=== PATIENT | female | born 1995 ===

== ENCOUNTER 2017-04-14 17:56 | Observation (INO) | payer OTHER ==
[2017-04-14 21:09] LABS: Glucose,Whole Blood 148 mg/dL (75-99)
[2017-04-14] MEDS ORDERED: traMADol 50 MG TAB PO PRN (21:33)
[2017-04-14] MEDS ORDERED: HYDROmorphone 1 MG/ML 1 ML SYRINGE IVP PRN (21:35)
[2017-04-14] MEDS: SODIUM CHLORIDE 0.9% 1,000 ML IV SCH (22:01)
[2017-04-15] MEDS ORDERED: PANTOPRAZOLE 40 MG/10 ML VIAL IVP ONE (00:08)
[2017-04-15] MEDS ORDERED: ONDANSETRON 4 MG/2 ML VIAL IVP PRN (00:09)
[2017-04-15] MEDS: HYDROcodone/APAP 5-325MG 1 EACH TAB PO PRN ×2 (00:46→08:05)
[2017-04-15 00:48] LABS: ALT 39 U/L (9-52); AST 20 U/L (14-36); Alkaline Phosphatase 54 U/L (38-126); Anion Gap 11 mmol/L; Blood Urea Nitrogen 10 mg/dL (7-17); Calcium 9.1 mg/dL (8.4-10.2); Carbon Dioxide 21 mmol/L (22-30); Chloride 105 mmol/L (98-107); Glucose 63 mg/dL (74-99); Non-African American GFR(MDRD) >60 (>60 ml/min/1.73 sqM); Potassium 4.2 mmol/L (3.5-5.1); Sodium 137 mmol/L (137-145); Total Bilirubin 0.4 mg/dL (0.2-1.3); Total Protein 6.6 g/dL (6.3-8.2)
[2017-04-15] MEDS: metroNIDAZOLE 250 MG TABLET PO SCH ×3 (01:56→17:27)
[2017-04-15 01:58] LABS: Glucose,Whole Blood 81 mg/dL (75-99)
[2017-04-15 02:02] LABS: Appearance,Urine Clear (Clear); Bilirubin,Urine Negative (Negative); Glucose,Urine (UA) Negative (Negative); Ketones,Urine Negative (Negative); Leukocyte Esterase,Urine Negative (Negative); Mucus,Urine Rare /hpf; Nitrite,Urine Negative (Negative); PH, Urine 5.5 (5.0-8.0); Particle Count 3015; Protein,Urine Trace (Negative); RBC,Urine 2 /hpf (0-5); Squamous Epithelial Cell,Urine 1 /hpf (0-4); UA Billing (MACRO vs. MICRO) MICRO; Urobilinogen,Urine <2.0 mg/dL (<2.0); WBC,Urine 2 /hpf (0-5)
--- NOTE | 2017-04-15 05:31 | HP ---
HISTORY AND PHYSICAL CHIEF COMPLAINT: Abdominal pain, diarrhea and bleeding per rectum. HISTORY OF PRESENT ILLNESS: This 21-year-old woman with a past medical history of chest pain, GERD, history of anxiety being followed by Dr. Jose F Alvarez in the outpatient setting apparently went to [facility] about a week ago to visit the patient's family who was admitted to the hospital. The patient apparently ate from the [employer] from the hospital. About 2 days ago the patient had fever on and off and as well as abdominal pain followed by multiple bouts of diarrhea, watery diarrhea, and also bleeding per rectum and the patient went to [facility]. The CT scan showed diffuse colitis involving the ascending, transverse, descending colon as well as some involvement of the small intestine also. The patient was transferred directly and admitted for further evaluation and treatment. There is no history of any hematochezia or melena. No history of arthritis. A vague rash was noted in the stomach. PAST MEDICAL HISTORY: History of chest pain, GERD, history of anxiety. MEDICATIONS: Medications are: 1. Tylenol p.r.n. 2. Metformin 500 mg t.i.d. 3. Prilosec 20 mg daily. ALLERGIES: Allergies are none. FAMILY HISTORY: History of cancer and hypertension in the family. SOCIAL HISTORY: No history of smoking. No history of alcohol intake. REVIEW OF SYSTEMS: ENT: No diminished hearing or diminished vision. CARDIOVASCULAR SYSTEM: No angina. RESPIRATORY: As mentioned earlier. GI: As mentioned earlier. : No dysuria. NERVOUS SYSTEM: No numbness or weakness. ALLERGY/IMMUNOLOGY: No asthma or hayfever. MUSCULOSKELETAL: As mentioned earlier. HEMATOLOGY/ONCOLOGY: No history of anemia. ENDOCRINE: No history of diabetes or hypothyroidism. CONSTITUTIONAL: As mentioned earlier. DERMATOLOGY: Negative. RHEUMATOLOGY: Negative. PSYCHIATRY: As mentioned earlier. PHYSICAL EXAMINATION: The patient is alert and oriented x3. Pulse is 110, blood pressure is 119/75, respiration 20, temperature 98.6, pulse ox 96% on room air. EYES: Conjunctivae normal. Oral mucosa moist. Neck is no jugular venous distention. No carotid bruit. No lymph node enlargement. CARDIOVASCULAR SYSTEM: S1 and S2, muffled. No S3, no S4. RESPIRATORY SYSTEM: Breath sounds diminished at the bases. No rhonchi. No crackles. ABDOMEN: Soft. Mild diffuse tenderness present. Otherwise no guarding, no rigidity. No mass palpable. No ascites. Bowel sounds present. LEGS: No edema, no swelling. NERVOUS SYSTEM: Higher functions as mentioned earlier. Moves all 4 limbs. No focal motor or sensory deficit. LYMPHATICS: No lymphadenopathy of the neck, axillae or groin. SKIN: No ulcers, rash or bleeding. LABS: Glucose 148. ASSESSMENT: 1. Abdominal pain, diarrhea and lower gastrointestinal bleeding possibly acute colitis. 2. Rule out hepatitis. 3. Gastroesophageal reflux disease. 4. Chest pain. 5. Anxiety. 6. Increased random blood sugar. 7. Obesity with body mass index of 40.3. RECOMMENDATION AND DISCUSSION: This 21-year-old woman who presented with multiple complex medical issues, will monitor the patient closely. Empiric antibiotics initiated. Obtain cultures. Stool testing. C. difficile has been requested. Otherwise, gastroenterology consultation possible endoscopies. Guarded prognosis because of multiple complex medical issues. Further recommendations to follow. Discussed with the patient understands and agrees. MMODL / IJN: [id number] /
[2017-04-15 06:36] LABS: Basophils # (A) 0.1 k/uL (0-0.2); Basophils % (A) 1 %; CH 28.4; Eosinophils # (A) 0.2 k/uL (0-0.7); Eosinophils % (A) 2 %; HCT 39.8 % (34.0-46.0); HDW 2.68; HGB 12.4 gm/dL (11.4-16.0); Luc # (Auto) 0.23; Luc % (Auto) 3; Lymphocytes # (A) 1.5 k/uL (1.0-4.8); Lymphocytes % (A) 16 %; MCH 27.7 pg (25.0-35.0); MCV 89.1 fL (80.0-100.0); Mean Platelet Volume 7.1; Monocytes # (A) 1.2 k/uL (0-1.0); Monocytes % (A) 13 %; Neutrophils # (A) 6.1 k/uL (1.3-7.7); Neutrophils % (A) 66 %; RBC 4.46 m/uL (3.80-5.40); RDW 14.2 % (11.5-15.5); WBC 9.2 k/uL (3.8-10.6); WBC (Perox) 9.96
[2017-04-15 06:47] LABS: Anion Gap 9 mmol/L; Blood Urea Nitrogen 9 mg/dL (7-17); Calcium 8.8 mg/dL (8.4-10.2); Carbon Dioxide 22 mmol/L (22-30); Chloride 107 mmol/L (98-107); Glucose 75 mg/dL (74-99); Magnesium 1.8 mg/dL (1.6-2.3); Non-African American GFR(MDRD) >60 (>60 ml/min/1.73 sqM); Potassium 3.7 mmol/L (3.5-5.1); Sodium 138 mmol/L (137-145)
[2017-04-15] MEDS: INSULIN ASPART 100 UNIT/ML 1 ML 10 ML VIAL SQ SCH ×4 (07:27→21:09)
[2017-04-15] MEDS ORDERED: metFORMIN 500 MG TAB PO SCH (07:30)
[2017-04-15] MEDS: PANTOPRAZOLE 40 MG/10 ML VIAL IVP SCH (07:40)
[2017-04-15 09:04] VITALS: BMI 40.3
[2017-04-15] MEDS: HEPARIN SODIUM,PORCINE 5,000 UNIT/ML 1 ML VIAL SQ SCH ×2 (09:39→21:09)
[2017-04-15 12:00] LABS: Glucose,Whole Blood 80 mg/dL (75-99)
--- NOTE | 2017-04-15 12:16 | P.CONS ---
History of Present Illness - Reason for Consult Consult date: 04/15/17 colitis Requesting physician: Alfredito Holbrook - History of Present Illness 21-year-old female admitted with reports of intermittent fever watery diarrhea rectal bleeding mid to lower abdominal pain that started Friday. Patient was evaluated [facility] and sent here. CT and [place] reported diffuse colitis involving the ascending transverse descending colon is some involvement of the small intestine. No changes in medications sick contacts recent antibiotics or travels. White count 9.2. Hemoglobin 12.4. LFTs within normal limits. C. diff negative. Afebrile. Bowel movements are improving less frequent and less bloody. Abdominal pain improving. No history of personal or familial inflammatory bowel disease. No history of colitis. Review of Systems Constitutional: Denies fever, chills, sweats, weight gain, or loss. HEENT: Negative for migraines, blurred vision or loss, earaches, drainage, tinnitus, oral mucosal lesions, dysphagia, or odynophagia. CARDIAC: History of chest pain denies, arrhythmias, or palpitation. RESPIRATORY: Asthma. Negative for shortness of breath, hemoptysis, cough, or sputum production. GI: See HPI for pertinent findings. : Negative for hematuria, urgency, frequency, polyuria, or dysuria. GYNc: Denies possibility of . Negative vaginal discharge. MUSCULOSKELETAL: Negative for muscle aches, swelling, arthritis, and arthralgias. NEUROLOGIC: Negative for stroke or TIA. ENDOCRINE: Negative for thyroid problems. SKIN: Negative for rash or itching. PSYCHIATRIC: Anxiety. All systems: negative (See HPI) Past Medical History Past Medical History: Chest Pain / Angina, GERD/Reflux History of Any Multi-Drug Resistant Organisms: None Reported Past Surgical History: No Surgical Hx Reported Past Anesthesia/Blood Transfusion Reactions: No Reported Reaction Past Psychological History: Anxiety Smoking Status: Never smoker - Past Family History Father Family Medical History: Cancer, Hypertension Medications and Allergies Home Medications Medication Instructions Recorded Confirmed Type Ibuprofen [Motrin] 200 mg PO DAILY 04/14/17 04/14/17 History Omeprazole [PriLOSEC] 20 mg PO AC-BRKFST 04/14/17 04/14/17 History metFORMIN HCL [Glucophage] 500 mg PO TID 04/14/17 04/14/17 History Allergies Allergy/AdvReac Type Severity Reaction Status Date / Time No Known Allergies Allergy Verified 04/14/17 20:42 Physical Exam Vitals: Vital Signs Temp Pulse Resp BP Pulse Ox 04/15/17 08:25 97.5 F L 69 20 103/61 98 04/14/17 20:18 98.6 F 110 H 20 119/75 96 Intake and Output 04/14/17 04/15/17 04/15/17 22:59 06:59 14:59 Intake Total 1400 1160 Output Total 150 100 Balance 1250 1060 Intake: Oral 1400 1160 Output: Urine 150 100 Other: Voiding Method Toilet Weight 103.2 kg 103.2 kg Patient Weight 04/16/17 06:59 Weight 103.2 kg General appearance: The patient is alert, oriented, in no acute distress. HET: Head is normocephalic and atraumatic. Pupils are equal and reactive. Oropharynx is clear without lesions. Neck: Supple without lymphadenopathy. Trachea midline. Heart: S1 S2. Regular rate and rhythm. Lungs: No crackles or wheezes are heard. Abdomen: Soft, nontender, nondistended with bowel sounds. No peritoneal signs. No palpable organomegaly or masses. Extremities: Normal skin color and turgor. No cyanosis, rash, ulceration, clubbing, or edema. Radial and pedal pulses are 2/4 bilaterally. Neurological: No focal deficits. Strength and sensation are grossly intact. Results CBC & Chem 7: 04/15/17 06:19 04/15/17 06:19 Labs: Abnormal Lab Results - Last 24 Hours (Table) 04/14/17 04/14/17 04/15/17 Range/Units 01:45 21:08 00:00 Monocytes # (0-1.0) k/uL Carbon Dioxide 21 L (22-30) mmol/L Glucose 63 L (74-99) mg/dL POC Glucose (mg/dL) 148 H (75-99) mg/dL Urine Protein Trace H (Negative) Urine Blood Moderate H (Negative) Urine Mucus Rare H (None) /hpf 04/15/17 Range/Units 06:19 Monocytes # 1.2 H (0-1.0) k/uL Carbon Dioxide (22-30) mmol/L Glucose (74-99) mg/dL POC Glucose (mg/dL) (75-99) mg/dL Urine Protein (Negative) Urine Blood (Negative) Urine Mucus (None) /hpf CT scan - abdomen: report reviewed (Dr. Gould) Assessment and Plan (1) Colitis Narrative/Plan: Suspect self-limiting infectious colitis possible inflammatory possible ischemic Current Visit: Yes Status: Acute Code(s): K52.9 - NONINFECTIVE GASTROENTERITIS AND COLITIS, UNSPECIFIED SNOMED Code(s): 62737634 Plan: 1. Light diet. Patient requesting advancement. 2. Empiric antibiotics Levaquin and Flagyl. Inpatient endoscopy not planned at this time. 3. Additional stool studies pending. Thank you for this kind referral and the opportunity to participate in the care of your patient. This consultation was discussed with Dr. Gould. The impression and plan of care have been directed as dictated.
[2017-04-15] MEDS: SODIUM CHLORIDE 0.9% 1,000 ML IV SCH (12:47)
[2017-04-15] MEDS: KETOROLAC 30 MG/ML 1 ML VIAL IVP PRN ×2 (15:02→21:08)
--- NOTE | 2017-04-15 16:56 | P.PN ---
Subjective Patient was admitted for pancolitis, there was concern about ulcerative colitis although patient is evaluating gastroenterology and is being treated for infectious colitis patient can use to have diarrhea because of which I'm unable to discharge her today. Pain medications will be switched to nonsteroidal anti- inflammatory is from opiates. If her diarrhea improves patient will be discharged tomorrow on oral antibiotics. Constitutional: Denied any fatigue denied any fever. Cardio vascular: denied any chest pain, palpitations Gastrointestinal continued abdominal pain and diarrhea Pulmonary: Denied any shortness of breath cough Neurologic denied any new focal deficits Objective - Vital Signs Vital signs: Vital Signs Temp 97.5 F L 04/15/17 12:00 Pulse 73 04/15/17 12:00 Resp 12 04/15/17 12:00 BP 115/69 04/15/17 12:00 Pulse Ox 96 04/15/17 12:00 Intake & Output 04/14/17 04/15/17 04/15/17 18:59 06:59 18:59 Intake Total 2560 Output Total 250 Balance 2310 Weight 103.2 kg 103.2 kg Intake: Oral 2560 Output: Urine 250 Other: Voiding Method Toilet # Voids 1 # Bowel Movements 3 - Exam PHYSICAL EXAMINATION: GENERAL: The patient is alert and oriented x3, not in any acute distress. Well developed, well nourished. HEENT: Pupils are round and equally reacting to light. EOMI. No scleral icterus. No conjunctival pallor. Normocephalic, atraumatic. No pharyngeal erythema. No thyromegaly. CARDIOVASCULAR: S1 and S2 present. No murmurs, rubs, or gallops. PULMONARY: Chest is clear to auscultation, no wheezing or crackles. ABDOMEN: Soft, minimal diffuse abdominal tenderness, nondistended, normoactive bowel sounds. No palpable organomegaly. MUSCULOSKELETAL: No joint swelling or deformity. EXTREMITIES: No cyanosis, clubbing, or pedal edema. NEUROLOGICAL: Gross neurological examination did not reveal any focal deficits. SKIN: No rashes. - Labs CBC & Chem 7: 04/15/17 06:19 04/15/17 06:19 Labs: Abnormal Lab Results - Last 24 Hours (Table) 04/14/17 04/14/17 04/15/17 Range/Units 01:45 21:08 00:00 Monocytes # (0-1.0) k/uL Carbon Dioxide 21 L (22-30) mmol/L Glucose 63 L (74-99) mg/dL POC Glucose (mg/dL) 148 H (75-99) mg/dL Urine Protein Trace H (Negative) Urine Blood Moderate H (Negative) Urine Mucus Rare H (None) /hpf 04/15/17 Range/Units 06:19 Monocytes # 1.2 H (0-1.0) k/uL Carbon Dioxide (22-30) mmol/L Glucose (74-99) mg/dL POC Glucose (mg/dL) (75-99) mg/dL Urine Protein (Negative) Urine Blood (Negative) Urine Mucus (None) /hpf Assessment and Plan Plan: #1 diarrhea abdominal pain: Probably secondary to infectious colitis patient is an antibiotic for that. #2 history of PCO OD patient can be resumed on metformin upon discharge. #3 complex cyst in the ovary most probably related to PCO S, will obtain CEA, alpha-fetoprotein and CA 125
[2017-04-15 17:17] LABS: Glucose,Whole Blood 89 mg/dL (75-99)
[2017-04-15] MEDS ORDERED: LEVOFLOXACIN 500MG-D5W PMX 500 MG in DEXTROSE/WATER 1 100ML.BAG IVPB SCH (18:00)
[2017-04-15] MEDS ORDERED: MAG HYDROX/AL HYDROX/SIMETH 30 ML CUP PO PRN (19:03)
[2017-04-15 21:06] LABS: Glucose,Whole Blood 94 mg/dL (75-99)
[2017-04-16] MEDS ORDERED: KETOROLAC 30 MG/ML 1 ML VIAL ONE (03:30)
[2017-04-16] MEDS ORDERED: metroNIDAZOLE 500 MG TAB ONE (03:30)
[2017-04-16] MEDS: metroNIDAZOLE 250 MG TABLET PO SCH (04:09)
[2017-04-16 07:27] LABS: Glucose,Whole Blood 77 mg/dL (75-99)
[2017-04-16] MEDS: SODIUM CHLORIDE 0.9% 1,000 ML IV SCH (07:51)
[2017-04-16] MEDS: INSULIN ASPART 100 UNIT/ML 1 ML 10 ML VIAL SQ SCH ×2 (07:52→11:38)
[2017-04-16] MEDS: PANTOPRAZOLE 40 MG/10 ML VIAL IVP SCH (08:25)
[2017-04-16] MEDS: HEPARIN SODIUM,PORCINE 5,000 UNIT/ML 1 ML VIAL SQ SCH (08:27)
[2017-04-16] MEDS ORDERED: metroNIDAZOLE 500 MG TAB PO SCH (10:00)
[2017-04-16] MEDS ORDERED: LOPERAMIDE 2 MG CAP PO PRN (10:16)
[2017-04-16] MEDS ORDERED: LOPERAMIDE 2 MG CAP PO STA (10:16)
[2017-04-16] MEDS: KETOROLAC 30 MG/ML 1 ML VIAL IVP PRN (10:26)
--- NOTE | 2017-04-16 10:53 | P.PN ---
Subjective Progress Note Date: 04/16/17 Principal diagnosis: Colitis 21-year-old female admitted with acute colitis suspected self-limiting infectious. 2 bowel movements this morning somewhat more forming. No blood. Tolerating diet. Afebrile. Fecal leukocytes negative. Objective - Vital Signs Vital signs: Vital Signs Temp 97.0 F L 04/15/17 20:45 Pulse 59 L 04/15/17 20:45 Resp 16 04/15/17 20:45 BP 114/69 04/15/17 20:45 Pulse Ox 98 04/15/17 20:45 Intake & Output 04/15/17 04/16/17 04/16/17 18:59 06:59 18:59 Intake Total 1200 Balance 1200 Weight 103.2 kg Intake: Oral 1200 Other: # Voids 1 # Bowel Movements 3 2 - Exam General appearance: The patient is alert, oriented, in no acute distress. HET: Head is normocephalic and atraumatic. Pupils are equal and reactive. Oropharynx is clear without lesions. Neck: Supple without lymphadenopathy. Trachea midline. Heart: S1 S2. Regular rate and rhythm. Lungs: No crackles or wheezes are heard. Abdomen: Soft, nontender, nondistended with bowel sounds. No peritoneal signs. No palpable organomegaly or masses. Extremities: Normal skin color and turgor. No cyanosis, rash, ulceration, clubbing, or edema. Radial and pedal pulses are 2/4 bilaterally. Neurological: No focal deficits. Strength and sensation are grossly intact. - Labs CBC & Chem 7: 04/15/17 06:19 04/15/17 06:19 Labs: Microbiology - Last 24 Hours (Table) 04/15/17 08:20 Stool for WBCs - Final Stool Assessment and Plan (1) Colitis Narrative/Plan: Suspect self-limiting infectious colitis possible inflammatory possible ischemic Current Visit: Yes Status: Acute Code(s): K52.9 - NONINFECTIVE GASTROENTERITIS AND COLITIS, UNSPECIFIED SNOMED Code(s): 37184151 Plan: 1. DC per medicine. Imodium as needed. 2. Light diet. Assessment and plan of cared discussed with Dr. Gould
[2017-04-16 13:14] VITALS: BP 117/74; PULSE 59; RESP 16; TEMP 96.7
--- NOTE | 2017-04-16 14:17 | P.DS ---
Providers Date of admission: 04/14/17 20:05 Attending physician: Alfredito Holbrook Consults: 04/14/17 21:24 Consult Physician Routine Consulting Provider: Marisela Gould Consult Reason/Comments: First time colitis Do you want consulting provider notified?: Yes Primary care physician: Stated None Hospital Course: Patient was admitted for colitis and patient was being treated for infectious colitis etiology of colitis is unknown patient does have pancolitis and patient related colonoscopy once her colitis improves and patient will be discharged on metronidazole and ciprofloxacin for about a week patient was a valid by gastroenterology patient does have an incidental finding of a complex cyst in one of the ovaries, I ordered a CA-125 which is within normal limits I still don't have all 4 fetoprotein and Carcino embryonic antigen patient does have history of polycystic ovarian disease and patient used to use metformin in the past and patient is asked to continue metformin patient will be referred to a garment alteration examiner as an outpatient. Patient's complex symptoms completely resolved and patient will be discharged today. PHYSICAL EXAMINATION: GENERAL: The patient is alert and oriented x3, not in any acute distress. Well developed, well nourished. HEENT: Pupils are round and equally reacting to light. EOMI. No scleral icterus. No conjunctival pallor. Normocephalic, atraumatic. No pharyngeal erythema. No thyromegaly. CARDIOVASCULAR: S1 and S2 present. No murmurs, rubs, or gallops. PULMONARY: Chest is clear to auscultation, no wheezing or crackles. ABDOMEN: Soft, nontender, nondistended, normoactive bowel sounds. No palpable organomegaly. MUSCULOSKELETAL: No joint swelling or deformity. EXTREMITIES: No cyanosis, clubbing, or pedal edema. NEUROLOGICAL: Gross neurological examination did not reveal any focal deficits. SKIN: No rashes. #1 diarrhea abdominal pain: Due to colitis #2 history of PCO OD patient can be resumed on metformin upon discharge. #3 complex cyst in the ovary most probably related to PCO S, Plan - Discharge Summary Discharge Rx Participant: Yes New Discharge Prescriptions: New Ciprofloxacin HCl [Cipro] 500 mg PO Q12HR #14 tablet metroNIDAZOLE [Flagyl] 500 mg PO TID #21 tab No Action Ibuprofen [Motrin] 200 mg PO DAILY metFORMIN HCL [Glucophage] 500 mg PO TID Omeprazole [PriLOSEC] 20 mg PO AC-BRKFST Discharge Medication List Ibuprofen [Motrin] 200 mg PO DAILY 04/14/17 [History] Omeprazole [PriLOSEC] 20 mg PO AC-BRKFST 04/14/17 [History] metFORMIN HCL [Glucophage] 500 mg PO TID 04/14/17 [History] Ciprofloxacin HCl [Cipro] 500 mg PO Q12HR #14 tablet 04/16/17 [Rx] metroNIDAZOLE [Flagyl] 500 mg PO TID #21 tab 04/16/17 [Rx] Follow up Appointment(s)/Referral(s): Anya Singh DO [Doctor of Osteopathic Medicine] - 1 Week Marisela Gould MD [STAFF PHYSICIAN] - 1 Week Discharge Disposition: HOME SELF-CARE
[2017-04-16] MEDS ORDERED: LEVOFLOXACIN 500 MG TAB PO SCH (18:00)
[2017-04-17] MEDS ORDERED: PANTOPRAZOLE 40 MG TABLET PO SCH (07:30)
== END 2017-04-16 15:34 | disposition home or self-care (01) ==
LOC: INTOOBSV 20:05 → 6PED 20:05
PROVIDERS: ADMIT Hospitalist; ATTEND Hospitalist
DX: A09 Infectious gastroenteritis and colitis, unspecified (principal); E28.2 Polycystic ovarian syndrome; K51.00 Ulcerative (chronic) pancolitis without complications; E66.9 Obesity, unspecified; K21.9 Gastro-esophageal reflux disease without esophagitis; R07.9 Chest pain, unspecified; F41.9 Anxiety disorder, unspecified; R73.9 Hyperglycemia, unspecified; Z68.41 Body mass index [BMI] 40.0-44.9, adult; Z79.84 Long term (current) use of oral hypoglycemic drugs; Z79.899 Other long term (current) drug therapy; Z82.49 Family history of ischemic heart disease and other diseases of the circulatory system; Z79.1 Long term (current) use of non-steroidal anti-inflammatories (NSAID)
CPT/HCPCS: 96365; 96372 ×2; 96375; 96376 ×2; 80053; 80048; 80074; 86304; 82378; 83735; 85025; 81001; 87324; 82105; 87329; 87328; 89055; 83036; G0379; G0378 ×3; J1644 ×2; J2405; J1956; J1885 ×2; C9113 ×2